=== PATIENT | female | born 1985 | race Caucasian/White ===

== ENCOUNTER 2018-12-14 14:05 | Observation (INO) ==
[2018-12-14] MEDS ORDERED: *HR* FentaNYL (PF) 100 MCG/2 ML VIAL IVP ONE ×2 (14:13→19:00)
[2018-12-14] MEDS ORDERED: Isovue-370 500 ML BOTTLE IVP ONE (14:13)
[2018-12-14] MEDS ORDERED: 0.9 % Sodium Chloride 1,000 ML IVC ONE (14:13)
[2018-12-14] MEDS ORDERED: Ondansetron 4 MG/2 ML VIAL IVP ONE ×2 (14:13→19:15)
[2018-12-14 14:39] LABS: Bilirubin,Urine Negative (Negative); Blood,Urine Trace (Negative); Clarity,Urine Cloudy (Clear); Color,Urine Yellow (Yellow); Glucose,Urine (UA) Normal (Normal); Ketones,Urine Negative (Negative); Leukocyte Esterase,Urine Small (Negative); Nitrite,Urine Positive (Negative); Protein,Urine Negative (Neg-Trace); Specific Gravity,Urine 1.017 (1.010-1.025); Urobilinogen,Urine Normal (Normal)
[2018-12-14 14:40] LABS: Bacteria,Urine Many per hpf (None-Few); Hyaline Casts,Urine None Seen per lpf (None-Few); Squamous Epithelial Cell,Urine Many per lpf (None-Few)
[2018-12-14 15:20] LABS: Basophils % 0.5 %; Eosinophils # 0.2 K/mcL (0.0-0.6); Eosinophils % 1.8 %; Hematocrit 42.9 % (35.3-44.9); Hemoglobin 14.1 g/dL (11.5-15.4); Immature Granulocytes % 0.5 % (0-4); Lymphocytes # 2.1 K/mcL (0.6-4.6); Lymphocytes % 25.3 %; Mean Corpuscular HGB Conc 32.9 g/dL (31.6-35.5); Mean Corpuscular Hemoglobin 29.1 pg (28.0-33.3); Mean Corpuscular Volume 88.5 fL (83.0-100.0); Mean Platelet Volume 10.2 fL (9.4-12.4); Monocytes # 0.6 K/mcL (0.0-1.3); Monocytes % 7.7 %; Neutrophils # 5.4 K/mcL (1.6-8.9); Platelet Count 217 K/mcL (140-400); Red Blood Count 4.85 M/mcL (3.82-4.97); Red Cell Distribution Width 14.5 % (11.5-14.5); Segmented Neutrophils % 64.2 %
[2018-12-14 15:39] LABS: Alanine Aminotransferase 7 Units/L (7-52); Albumin 4.7 g/dL (3.5-5.7); Albumin/Globulin Ratio 1.5 (1.1-2.2); Alkaline Phosphatase 54 Units/L (34-104); Aspartate Amino Transferase 14 Units/L (13-39); BUN/Creatinine Ratio 24 (6-26); Bilirubin,Direct 0.1 mg/dL (0.0-0.2); Bilirubin,Indirect 0.5 mg/dL (0.0-1.2); Bilirubin,Total 0.6 mg/dL (0.3-1.0); Blood Urea Nitrogen 15 mg/dL (6-20); Calcium 9.7 mg/dL (8.6-10.3); Carbon Dioxide 24 mEq/L (23-29); Chloride 103 mEq/L (98-107); Globulin 3.1 g/dL (2.4-3.5); Glucose 89 mg/dL (70-105); Lipase 44 Units/L (11-82); Osmolality,Calculated 282 (280-300); Potassium 3.9 mEq/L (3.5-5.1); Sodium 136 mEq/L (136-145); Total Protein 7.8 g/dL (6.4-8.9); eGFR For Non-African Americans > 60 (> 60)
[2018-12-14] MEDS ORDERED: Ketorolac 15 MG/ML VIAL IVP ONE (16:28)
[2018-12-14] MEDS ORDERED: cefTRIAXone 1,000 MG in Water for inj. (sterile) 20 ML 10 ML IVP ONE (16:28)
[2018-12-14] MEDS ORDERED: *HR* Morphine 2 MG/ML SYRINGE IVP ONE (16:28)
--- NOTE | 2018-12-14 16:29 | Emergency Department Note ---
Disposition Clinical Impression: Ovarian torsion Disposition: Transfer Short-Term Hosp Condition: Good Referrals: NONE,PCP [Primary Care Provider] - Forms: ED Satisfaction Letter, Work/School Release Time of Disposition: 19:08 Abdominal Pain HPI - General Chief Complaint: ED Abdominal Pain Stated Complaint: abd pain Time Seen by Provider: 12/14/18 14:12 Source: patient, EMS Mode of arrival: EMS Nursing Notes Reviewed: Yes Vital Signs Reviewed: Yes - History of Present Illness HPI Narrative: 33-year-old female otherwise healthy presents to the emergency department with right side abdominal pain. States her symptoms have been ongoing for the past several hours starting last night. The maximal intensity approximately one hour prior to arrival. She is had constant nausea with vomiting. She is been taken ibuprofen without significant relief. She does believe this feels similar to her prior ovarian torsion several years ago. This was performed at [facility]. She denies any urinary symptoms. Denies any vaginal discharge or bleeding. Menstrual period was 1 week ago. She has a history of cholecystectomy. Pt Subjective Complaint: abdominal pain Pain Scale: 10 - Related Data Allergies Allergy/AdvReac Type Severity Reaction Status Date / Time No Known Allergies Allergy Verified 12/14/18 13:44 All systems ED: reviewed and negative except as stated. Review of Systems: As Per HPI Constitutional: Denies: fever, chills ENT ED: Denies: congestion Cardiovascular: Denies: chest pain Respiratory: Denies: dyspnea Gastrointestinal: Reports: abdominal pain, nausea, vomiting. 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 Absent: scleral icterus - ENT ENT exam: normal exam, normal oropharynx, mucous membranes moist - Neck Neck exam: Present: normal inspection, full ROM, trachea midline - Chest Chest inspection: Present: normal inspection, symmetric chest wall rise - Respiratory Respiratory exam: Present: normal lung sounds bilaterally - Cardiovascular Cardiovascular exam: Present: regular rate, normal rhythm, normal heart sounds - Abdominal Exam Abdominal exam: Present: soft, tenderness, guarding, normal bowel sounds, tenderness at McBurney's Point. Absent: Non-Tender, distention, rebound, rigidity, obturator sign, Rovsing's sign Abdominal tenderness: Present: RLQ - Extremities Exam Extremities exam: Present: normal inspection, full ROM, normal capillary refill. Absent: tenderness, pedal edema - Back Exam Back exam: Present: normal inspection, full ROM. Absent: tenderness - Neurological Exam Neurological exam: Present: alert, oriented X3 - Psychiatric Psychiatric exam: Present: normal affect, normal mood - Skin Skin exam: Present: warm, dry, intact, normal color. Absent: rash, cyanosis, diaphoresis Course Course Narrative: Patient presents with right lower quadrant abdominal pain on going for the past several hours but most severe last one hour. She reports this feels similar to her ovarian torsion in the past. On examination she does have some guarding in the right lower quadrant positive McBurney. Concern for possible appendicitis versus ovarian torsion. At this time will obtain labs including a CT scan and ultrasound. Will try to aggressively treat her pain and nausea with medications. - Reevaluation(s) Reevaluation #1: Urinalysis appears consistent with infection. Ceftriaxone was given. Her labs or otherwise unremarkable. No leukocytosis. CT scan shows pelvic vessel congestion. Normal appendix. Doppler ultrasound of the ovaries is pending at this time. She has received multiple medications for her pain however continues to be an discomfort. Time: 16:28 Reevaluation #2: Still awaiting call from [facility] for physician. The patient was seen in minimal discomfort. She was found outside smoking. Given her diagnosis of the intermittent torsion this is consistent with her pain cycle. We had a discussion with the patient offering admission here again and given the weight patient is agreeable to staying here at [facility] for further management. - Consultations Consultation #1: Spoke with building energy retrofit technician concerning for torsion and detorsion given intermittent episodes of flow and absent flow. Spoke with RADIOLOGIST, suspects intermittent torsion. Discussed with the patient on surgical intervention here at [facility]. Patient requests to be transferred to [facility] where she had her original surgery for right side ovarian torsion performed in 2010. We discussed this may delay intervention and she requests to be transferred. She has received multiple medications for pain how ever were unsuccessful in treating her pain. Patient will be transferred to [facility] at her request. Time: 19:02 Consultation #2: Spoke to [facility] transfer Center. Patient has a history of ovarian torsion performed their in 2010. Will contact a OB surgeon and call back. Time: 19:15 Consultation #3: Patient was accepted to the EMERGENCY DEPARTMENT by physician Dr. ANDINO. Patient is agreeable to transfer Time: 19:54 Vital Signs Temperature 98.7 F 12/14/18 14:13 Pulse Rate 89 12/14/18 14:13 Respiratory Rate 14 12/14/18 14:13 Blood Pressure 129/89 12/14/18 14:13 O2 Sat by Pulse Oximetry 100 12/14/18 14:13 Temperature 98.7 F 12/14/18 14:13 Pulse Rate 89 12/14/18 14:13 Respiratory Rate 14 12/14/18 14:13 Blood Pressure 129/89 12/14/18 14:13 O2 Sat by Pulse Oximetry 100 12/14/18 14:13 Oxygen Delivery Oxygen Delivery Room Air Abdominal Pain - MDM Narrative Medical decision making narrative: Patient was discussed with my attending physician who agrees with ED management and final disposition. They independently evaluated the patient. Please refer to their attestation to this encounter for additional information. This note was generated by [employer] voice recognition software and as a result grammatical or spelling errors may occur using this program. - Medical Records Medical records reviewed: Yes I reviewed the patient's medical records. - Lab Data Lab results reviewed: Yes I reviewed the patient's lab results. Result diagrams: 12/14/18 14:13 12/14/18 14:13 Lab Results 12/14/18 12/14/18 12/14/18 Range/Units 14:13 14:13 14:32 WBC 8.3 (4.3-11.1) K/mcL RBC 4.85 (3.82-4.97) M/mcL Hgb 14.1 (11.5-15.4) g/dL Hct 42.9 (35.3-44.9) % MCV 88.5 (83.0-100.0) fL MCH 29.1 (28.0-33.3) pg MCHC 32.9 (31.6-35.5) g/dL RDW 14.5 (11.5-14.5) % Plt Count 217 (140-400) K/mcL MPV 10.2 (9.4-12.4) fL Immature Gran % 0.5 (0-4) % Seg Neutrophils % 64.2 % Lymphocytes % 25.3 % Monocytes % 7.7 % Eosinophils % 1.8 % Basophils % 0.5 % Neutrophils # 5.4 (1.6-8.9) K/mcL Lymphocytes # 2.1 (0.6-4.6) K/mcL Monocytes # 0.6 (0.0-1.3) K/mcL Eosinophils # 0.2 (0.0-0.6) K/mcL Basophils # 0.0 (0.0-0.2) K/mcL Sodium 136 (136-145) mEq/L Potassium 3.9 (3.5-5.1) mEq/L Chloride 103 (98-107) mEq/L Carbon Dioxide 24 (23-29) mEq/L BUN 15 (6-20) mg/dL Creatinine 0.63 (0.60-1.20) mg/dL Est GFR ( Amer) > 60 (> 60) Est GFR (Non-Af Amer) > 60 (> 60) BUN/Creatinine Ratio 24 (6-26) Glucose 89 (70-105) mg/dL Calculated Osmolality 282 (280-300) Calcium 9.7 (8.6-10.3) mg/dL Total Bilirubin 0.6 (0.3-1.0) mg/dL Direct Bilirubin 0.1 (0.0-0.2) mg/dL Indirect Bilirubin 0.5 (0.0-1.2) mg/dL AST 14 (13-39) Units/L ALT 7 (7-52) Units/L Alkaline Phosphatase 54 (34-104) Units/L Serum Total Protein 7.8 (6.4-8.9) g/dL Albumin 4.7 (3.5-5.7) g/dL Globulin 3.1 (2.4-3.5) g/dL Albumin/Globulin Ratio 1.5 (1.1-2.2) Lipase 44 (11-82) Units/L Urine Color Yellow (Yellow) Urine Clarity Cloudy A (Clear) Urine pH 6.0 (5.0-8.0) pH Units Ur Specific [place] 1.017 (1.010-1.025) Urine Protein Negative (Neg-Trace) mg/dL Urine Glucose (UA) Normal (Normal) mg/dL Urine Ketones Negative (Negative) mg/dL Urine Blood Trace H (Negative) Urine Nitrite Positive A (Negative) Urine Bilirubin Negative (Negative) Urine Urobilinogen Normal (Normal) mg/dL Ur Leukocyte Esterase Small H (Negative) Urine Microscopic RBC 3-5 H (0-3) per hpf Urine Microscopic WBC 5-15 H (0-3) per hpf Ur Squamous Epith Cells Many H (None-Few) per lpf Urine Bacteria Many H (None-Few) per hpf Hyaline Casts None Seen (None-Few) per lpf Ur Culture Indicated? NO. A (NO) - Radiology Data Radiology results reviewed: Yes I reviewed the patient's radiology results. Abdomen/Pelvis CT 12/14/18 14:13 IMPRESSION: No acute process identified. Normal appendix. Prominent pelvic vessels are re-identified which can be seen in pelvic congestion syndrome if symptomatic. D/ / 12/14/2018 16:53:15 Burke Garcia MD / [facility] Interpreting Provider: Burke Garcia MD Abdomen/Pelvis/Transvag US 12/14/18 14:14 IMPRESSION: The medical imaging technologist describes apparent episodes of absent flow to the right ovary concerning for torsion. Probable intermittent right ovarian torsion is occurring. Uterus and adnexal structures appear unremarkable. Critical results were called by Dr. Lyle Burk to Vasquez Voss on 12/14/2018 at 18:59. D/ / Lyle Burk / Lyle Burk Interpreting Provider: Lyle Burk Critical Care Time Critical Care Time: Yes Total Critical Care Time: 35 Attestation: Critical care time 35 minutes managing ovarian torsion. Attestation Statement - Attestation Attestation: Patient was seen with resident physician. I reviewed the history, physical, assessment and plan, and agree with the findings. I also personally evaluated this patient and had [id number] time with this patient. 33-year-old female presents to Department chief complaint of right lower quadrant abdominal pain. Patient states pain started a couple days ago but got really bad tonight. She denies dysuria. She denies being . She says she has had a history of ovarian torsion. She said the pain feels similar to that. She also said that her ovary was left intact after surgical for seizure to repair the twisted ovary. Patient's not had any diarrhea. She has had some nausea. She denies fevers or chills. Review of systems as above remainder negative. Physical exam vital signs are stable. ENT is unremarkable. Heart regular rhythm and rate. Lungs clear. Abdomen is guarding throughout. She is tender in the right lower quadrant. Patient appears uncomfortable secondary to the pain. Extremities unremarkable. Neurologically intact. Skin no rashes. Psych normal. ED course. We will have to rule out both appendicitis as well as torsion. Will call for an ultrasound as well as a CT scan. Labs did demonstrate a UTI, but otherwise were unremarkable. Hemodynamically the patient was stable throughout her stay. CT scan revealed no acute abnormalities. Ultrasound however was eventually obtained and that did reveal what appear to be a right-sided intermittent ovarian torsion. Patient was offered admission here but preferred to go to [facility] secondary to the fact that she had been treated there for the same thing previously. We agreed to arrange for transfer. Patient had significant improvement in pain. She actually one point went out and smoked. Because the diagnosis is more intermittent we did not push the issue of staying here. We did get a accepting physician at [facility], however prior to transfer patient decided she wanted to stay here. OB was notified. Dr. Villarreal agreed to come evaluate the patient. With the plan to admit her to [facility]. Critical care time 35 minutes. I agree with resident physician assessment and plan.
--- NOTE | 2018-12-14 20:59 | OB/GYN History & Physical ---
Date of Encounter: 12/14/18 Time of Encounter: 20:56 Assessment and Plan (1) Ovarian torsion Current visit: Yes Status: Acute Pt with severe rlq pain and n/v. CT was neg for appy and suggestive of torsion, u/s confirmed this. Pt with h/o prior torsion with l/s 9 years ago. D/w pt tx options and will proceed with l/s right oophrectomy. Pt is aware of operative risks and consent is obtained. History of Present Illness Chief complaint: severe right lower quadrant pain, h/o ovarian torsion, n/v HPI: Ms. Guidry is a 33 year old female G0 female presents with 24 hour worsening RLQ pelvic pain, just like when she had prior ovarian torsion. She states can't get comfortable unless bends leg upwards. Has persistent n/v. No fever or chills. No bowel or bladder c/o. Of note pt has h/o ovarian preserving surgery in 2009 at [facility] for ovarian torsion. CT showed congestion of pelvic vasculature. U/s showed intermittent blood flow in right ovarian vessels. Past Med Surg Social Fam HX - Past Medical History Source: patient Medical history: migraine Additional medical history: ovarian cysts, ovarian torsion Psychiatric history: no psych history - Past Surgical History Surgical History: cholecystectomy, other (l/s for right ovarian torsion) Additional surgical history: ovarian torsion surgery - Social History Smoking Status: Current every day smoker Smokeless Tobacco Status: No Alcohol use: none Drug use: none - Family History Mother Living Status: Still Living Obstetrical History - Pregnancies : 0 Medications and Allergies Allergy/AdvReac Type Severity Reaction Status Date / Time No Known Allergies Allergy Verified 12/14/18 13:44 Exam - Vital Signs Vital signs: Initial Vital Signs Temp Pulse Resp BP Pulse Ox 98.7 F 89 14 129/89 100 12/14/18 14:13 12/14/18 14:13 12/14/18 14:13 12/14/18 14:13 12/14/18 14:13 - Constitutional Constitutional: well nourished, moderate distress - HEENT HEENT: EOMI, PERRL - Neck Neck exam: full ROM - Lungs Respiratory exam: CTAB - Cardiovascular Cardiovascular exam: RRR - Abdomen Abdomen detail: right lower quadrant: tenderness (No generalized guarding) - Extremities Extremities exam: full ROM - Adnexa Adnexa: right: tenderness Results Result Diagrams: 12/14/18 14:13 12/14/18 14:13 Abnormal lab results Urine Clarity Cloudy (Clear) A 12/14/18 14:32 Urine Blood Trace (Negative) H 12/14/18 14:32 Urine Nitrite Positive (Negative) A 12/14/18 14:32 Ur Leukocyte Esterase Small (Negative) H 12/14/18 14:32 Urine Microscopic RBC 3-5 per hpf (0-3) H 12/14/18 14:32 Urine Microscopic WBC 5-15 per hpf (0-3) H 12/14/18 14:32 Ur Squamous Epith Cells Many per lpf (None-Few) H 12/14/18 14:32 Urine Bacteria Many per hpf (None-Few) H 12/14/18 14:32 Ur Culture Indicated? NO. (NO) A 12/14/18 14:32 All other labs normal.
[2018-12-14] MEDS ORDERED: Ringers Solution, Lactated 1,000 ML IVC SCH (21:00)
[2018-12-14] MEDS ORDERED: Albuterol 2.5 MG/3 ML NEBULIZER IH ONE (21:20)
[2018-12-14] MEDS ORDERED: *HR* Rocuronium Bromide 50 MG/5 ML VIAL ONE (21:24)
[2018-12-14] MEDS ORDERED: Dexamethasone 4 MG/ML VIAL ONE (21:24)
[2018-12-14] MEDS ORDERED: *HR* Midazolam HCl 2 MG/2 ML VIAL ONE (21:24)
[2018-12-14] MEDS ORDERED: *HR* FentaNYL (PF) 100 MCG/2 ML VIAL ONE ×2 (21:24→22:50)
[2018-12-14] MEDS ORDERED: Lidocaine -MPF 2% 2 ML VIAL ONE (21:24)
[2018-12-14] MEDS ORDERED: Ondansetron 4 MG/2 ML VIAL ONE (21:24)
[2018-12-14] MEDS ORDERED: *HR* Propofol 200 MG/20 ML VIAL IVP ONE (21:24)
[2018-12-14] MEDS ORDERED: Lidocaine -MPF 4% 5 ML AMPUL ONE (21:28)
[2018-12-14] MEDS ORDERED: Acetaminophen IV 1,000 MG/100 ML INFUS..BTL ONE (21:32)
[2018-12-14] MEDS ORDERED: Famotidine 20 MG/2 ML VIAL ONE (21:32)
--- NOTE | 2018-12-14 21:37 | Anesthesia Evaluation PreOp ---
Date of Encounter: 12/14/18 Time of Encounter: 21:40 - Past History Planned Operation: Laparoscopic Rt OOphorectomy Cardiac History: Denies any Significant Hx Pulmonary History: Smoker IMCU NURSE History: Other (Migraines) Other Medical History: Denies Any Significant HX Anesthesia History: No Prior Anesthetic Complications : No Test: Negative Alcohol Use: none Drug use: none Medications and Allergies Allergy/AdvReac Type Severity Reaction Status Date / Time No Known Allergies Allergy Verified 12/14/18 13:44 - Meds/Allergy Pre-op Review Medications Reviewed: Yes Allergies Reviewed: Yes Beta Blockers on Current Med List: No Anesthesia Results - Labs 12/14/18 14:13 12/14/18 14:13 Anesthesia Exam O2 Sat Height 1.7 m Weight 54.431 kg O2 Sat by Pulse Oximetry 100 Vital Signs Temp Pulse Resp BP Pulse Ox 98.7 F 89 14 129/89 100 12/14/18 14:13 12/14/18 14:13 12/14/18 14:13 12/14/18 14:13 12/14/18 14:13 Height: 5'7 Weight: 120 lbs NPO (# of Hours): MN Pain Scale: 0 - HEENT Pupil (Motor): Pupils equal, EOMI Mallampati: II Oral Opening: Greater than 3 - IMCU NURSE LOC: Oriented IMCU NURSE Motor: Normal RUE, Normal LUE, Normal RLE, Normal LLE, Normal Face IMCU NURSE Sensory: Normal: RUE, LUE, RLE, LLE, Face - Cardiac Rhythm: Regular Murmur: None JVD: No Carotid Bruit: No - Pulmonary Breath Sounds: bilateral Clear Respiratory Effort: Symmetrical Anesthesia Assess/Plan ASA Score: 2, E Level of consciousness: Cooperative, Oriented Anesthetic Plan: General Autologous Blood: No Monitoring Plan: Standard Monitors Recovery Plan: PACU (Discussed GA, agrees to proceed)
[2018-12-14] MEDS ORDERED: *HR* Promethazine 25 MG/ML VIAL IVP PRN (21:39)
[2018-12-14] MEDS ORDERED: *HR* OxyCODONE Immed Rel 5 MG TABLET PO PRN (21:39)
[2018-12-14] MEDS ORDERED: Dexamethasone 4 MG/ML VIAL IVP ONE (21:39)
[2018-12-14] MEDS ORDERED: Bupivacaine/EPI 1:200k 0.5%PF 10 ML VIAL ONE (21:48)
--- NOTE | 2018-12-14 22:41 | Discharge Summary ---
Outpatient Proc Discharge Plan - Plan Additional Instructions: F/U in my office in 2 weeks. Call for fever, abnormal drainage, redness or other signs or symptoms of infection. Don't lift more than a gallon of milk for 2 days. Prescriptions: Ibuprofen [Motrin] 600 mg PO Q6HR PRN #30 tab PRN Reason: post op pain Oxycodone HCl/Acetaminophen [Percocet 5-325 mg Tablet] 1 each PO Q6H PRN 7 Days #20 tablet PRN Reason: post op pain Home Medications: Ibuprofen [Motrin] 600 mg PO Q6HR PRN #30 tab 12/14/18 [Rx] Oxycodone HCl/Acetaminophen [Percocet 5-325 mg Tablet] 1 each PO Q6H PRN 7 Days #20 tablet 12/14/18 [Rx]
[2018-12-14] MEDS ORDERED: EPHEDrine 50 MG/ML VIAL ONE (22:49)
[2018-12-14] MEDS ORDERED: Neostigmine Methylsulfate 3 MG/3 ML SYRINGE ONE (23:15)
[2018-12-14] MEDS ORDERED: Ketorolac 30 MG/ML VIAL ONE (23:38)
--- NOTE | 2018-12-14 23:43 | OB/GYN Procedure Note ---
Laparoscopy Procedure - Diagnosis Date of procedure: 12/14/18 Pre-op diagnosis: acute pelvic pain, other (Right ovarian torsion) Post-op diagnosis: same - Procedure Laparoscopy procedure: operative laparoscopy, right oophorectomy Surgeon: Aniceto Thacker Was there an curriculum assistant principal present: No Anesthesia Type: General Estimated blood loss (cc): 5 Complications: none Specimens: right ovary Findings: probable right ovarian torsion, normal appendix, normal left tube and normal uterus. Disposition: PACU Narrative: Patient's 33-year-old female presented emergency room with severe right lower quadrant pain and nausea and vomiting. Ultrasound showed probable right ovarian torsion and CAT scan showed inflammation and right pelvic vessels. Patient had history of prior right ovarian torsion. I discussed with patient options patient consented for right oophrectomy. She was aware operative risks and signed appropriate consent. Description procedure: Patient was taken operating room where general anesthesia was administered. She is prepped draped in usual sterile fashion. Bladder was drained of clear urine. Scalp was used to make 5 mm incision below the umbilicus from a blunt trocar was introduced at difficulty. He direct visualization 12 mm trochars placed midline just above symphysis pubis. Another 5 mm trochars placed in the right lower quadrant. Right ovary was pulled towards the midline ligatures taken crossed infundibulopelvic ligament on the right side this was cauterized and transected. Patient was then taken across the mesosalpinx and utero-ovarian ligament cauterized and transected as I went. Right ovary was freed up placed in Endo Catch bag and removed without difficulty through the 12 mm trocar site. Uterus was normal as were the fallopian tubes and left ovary. Appendix was normal. There is no scar tissue no obvious endometriosis. This point pneumoperitoneum was released trochars removed the 12 mm trocar site closed first closing the fascia with 0 Vicryl and the skin edges with 4-0 Vicryl rest skin edges were closed 4-0 Vicryl and skin glue. Then the procedure all sponge and instruments counts are correct [place] loss 5 mL patient was taken recovery in good condition
--- NOTE | 2018-12-14 23:58 | Anesthesia Evaluation Post Op ---
Date of Encounter: 12/14/18 Time of Encounter: 23:55 - Vital Signs Vital Signs: Vital Signs/O2 Sat/Glucose, Most Current Temp Pulse Resp BP Pulse Ox 12/14/18 23:53 97.7 F 57 16 136/83 99 12/14/18 23:43 97.7 F 63 16 133/76 99 12/14/18 23:33 97.4 F L 62 14 122/76 99 12/14/18 21:09 14 103/60 - Lungs Lungs: Clear Ascult./Percussion - Airway Airway: Non-obstructed - Cardiovascular Regular Rate - Mental Status Mental Status: Alert & Oriented, Answers Appropriately - Pain Pain Scale: 1 - Nausea Vomiting Nausea Vomiting: Not Present - Hydration Hydration: Ice chips - Discharge PostOp Status: Transfer Patient to floor
[2018-12-15] MEDS ORDERED: *HR* OxyCODONE/APAP 5/325 TABLET PO ONE (00:06)
[2018-12-15 01:36] VITALS: BP 111/75
== END 2018-12-15 01:40 | disposition home or self-care (01) ==
LOC: EMEROOARM 14:05 → 1NENUOBS 14:05
PROVIDERS: ADMIT Obstetrics & Gynecology; ATTEND Obstetrics & Gynecology

== ENCOUNTER 2019-04-17 23:14 | Observation (INO) ==
[2019-04-17] MEDS ORDERED: Ondansetron 4 MG/2 ML VIAL IVP ONE (23:48)
[2019-04-17] MEDS ORDERED: 0.9 % Sodium Chloride 1,000 ML IVC ONE (23:48)
[2019-04-17] MEDS ORDERED: Morphine Sulfate 2 MG/ML SYRINGE IVP ONE (23:48)
[2019-04-18 00:27] LABS: Basophils # 0.1 K/mcL (0.0-0.2); Basophils % 0.4 %; Eosinophils # 0.5 K/mcL (0.0-0.6); Eosinophils % 3.8 %; Hematocrit 39.5 % (35.3-44.9); Hemoglobin 12.9 g/dL (11.5-15.4); Immature Granulocytes % 0.5 % (0-4); Lymphocytes # 3.2 K/mcL (0.6-4.6); Lymphocytes % 26.5 %; Mean Corpuscular HGB Conc 32.7 g/dL (31.6-35.5); Mean Corpuscular Hemoglobin 28.4 pg (28.0-33.3); Mean Corpuscular Volume 86.8 fL (83.0-100.0); Mean Platelet Volume 10.4 fL (9.4-12.4); Monocytes # 0.9 K/mcL (0.0-1.3); Monocytes % 7.6 %; Neutrophils # 7.3 K/mcL (1.6-8.9); Platelet Count 197 K/mcL (140-400); Red Blood Count 4.55 M/mcL (3.82-4.97); Red Cell Distribution Width 14.9 % (11.5-14.5); Segmented Neutrophils % 61.2 %; White Blood Count 11.9 K/mcL (4.3-11.1)
[2019-04-18 00:39] LABS: BUN/Creatinine Ratio 12 (6-26); Blood Urea Nitrogen 8 mg/dL (6-20); Calcium 9.2 mg/dL (8.6-10.3); Carbon Dioxide 23 mEq/L (23-29); Chloride 108 mEq/L (98-107); Glucose 99 mg/dL (70-105); Osmolality,Calculated 282 (280-300); Potassium 3.9 mEq/L (3.5-5.1); Sodium 137 mEq/L (136-145); eGFR For African Americans > 60 (> 60); eGFR For Non-African Americans > 60 (> 60)
[2019-04-18 00:51] LABS: Bilirubin,Urine Negative (Negative); Blood,Urine Negative (Negative); Clarity,Urine Cloudy (Clear); Color,Urine Yellow (Yellow); Glucose,Urine (UA) Normal (Normal); Ketones,Urine Negative (Negative); Leukocyte Esterase,Urine Small (Negative); Nitrite,Urine Positive (Negative); PH,Urine 6.5 pH Units (5.0-8.0); Protein,Urine Negative (Neg-Trace); Specific Gravity,Urine 1.021 (1.010-1.025); Urobilinogen,Urine Normal (Normal)
[2019-04-18 00:53] LABS: Bacteria,Urine Many per hpf (None-Few); Hyaline Casts,Urine None Seen per lpf (None-Few); Squamous Epithelial Cell,Urine Many per lpf (None-Few)
[2019-04-18] MEDS ORDERED: *HR* HYDROmorphone (PF) 1 MG/ML SYRINGE IVP ONE ×3 (02:12→07:10)
[2019-04-18] MEDS ORDERED: Ondansetron 4 MG/2 ML VIAL IVP PRN (06:07)
[2019-04-18] MEDS ORDERED: cefTRIAXone 2,000 MG in 0.9 % Sodium Chloride Mini Bag 100 ML IVPB ONE (06:08)
[2019-04-18] MEDS: Ringers Solution, Lactated 1,000 ML IVC SCH ×2 (06:24→14:57)
[2019-04-18] MEDS ORDERED: *HR* HYDROmorphone (PF) 1 MG/ML SYRINGE IVP PRN (11:53)
[2019-04-18] MEDS ORDERED: Ketorolac 15 MG/ML VIAL IVP PRN (11:55)
[2019-04-19] MEDS ORDERED: cefTRIAXone 1,000 MG in Water for inj. (sterile) 10 ML IVP SCH (06:00)
[2019-04-19 06:47] VITALS: BP 99/65
== END 2019-04-19 10:15 | disposition home or self-care (01) ==
LOC: EMEROOARM 23:14 → 1NENUOBS 23:14
PROVIDERS: ADMIT Obstetrics & Gynecology; ATTEND Obstetrics & Gynecology

== ENCOUNTER 2019-06-03 13:41 | Observation (INO) ==
[2019-06-03] MEDS ORDERED: 0.9 % Sodium Chloride 1,000 ML IVC STA (14:05)
[2019-06-03] MEDS ORDERED: Ondansetron 4 MG/2 ML VIAL IVP STA (14:05)
[2019-06-03] MEDS ORDERED: cefTRIAXone 1,000 MG in Water for inj. (sterile) 10 ML IVP ONE (14:05)
[2019-06-03] MEDS ORDERED: Ketorolac 15 MG/ML VIAL IVP ONE (14:06)
[2019-06-03 15:26] LABS: Basophils % 0.6 %; Eosinophils # 0.3 K/mcL (0.0-0.6); Eosinophils % 4.1 %; Hematocrit 40.4 % (35.3-44.9); Immature Granulocytes % 0.3 % (0-4); Lymphocytes # 1.8 K/mcL (0.6-4.6); Lymphocytes % 28.6 %; Mean Corpuscular HGB Conc 32.2 g/dL (31.6-35.5); Mean Corpuscular Hemoglobin 28.5 pg (28.0-33.3); Mean Corpuscular Volume 88.6 fL (83.0-100.0); Mean Platelet Volume 9.9 fL (9.4-12.4); Monocytes # 0.6 K/mcL (0.0-1.3); Monocytes % 9.3 %; Neutrophils # 3.6 K/mcL (1.6-8.9); Platelet Count 153 K/mcL (140-400); Red Blood Count 4.56 M/mcL (3.82-4.97); Red Cell Distribution Width 15.5 % (11.5-14.5); Segmented Neutrophils % 57.1 %; White Blood Count 6.3 K/mcL (4.3-11.1)
[2019-06-03] MEDS ORDERED: Isovue-370 500 ML BOTTLE IVP ONE (15:26)
[2019-06-03] MEDS ORDERED: *HR* FentaNYL (PF) 100 MCG/2 ML VIAL IVP ONE (15:42)
[2019-06-03 15:46] LABS: BUN/Creatinine Ratio 13 (6-26); Blood Urea Nitrogen 8 mg/dL (6-20); Calcium 8.6 mg/dL (8.6-10.3); Carbon Dioxide 22 mEq/L (23-29); Chloride 110 mEq/L (98-107); Glucose 77 mg/dL (70-105); Osmolality,Calculated 283 (280-300); Potassium 3.9 mEq/L (3.5-5.1); Sodium 138 mEq/L (136-145); eGFR For African Americans > 60 (> 60); eGFR For Non-African Americans > 60 (> 60)
[2019-06-03] MEDS ORDERED: *HR* HYDROcodone/Acet 5/325 mg TABLET PO PRN (17:35)
[2019-06-03] MEDS ORDERED: Acetaminophen 325 MG TABLET PO PRN (17:35)
[2019-06-03] MEDS ORDERED: Ondansetron 4 MG/2 ML VIAL IVP PRN (17:35)
[2019-06-03] MEDS ORDERED: *HR* OxyCODONE Immed Rel 5 MG TABLET PO PRN (17:35)
[2019-06-03] MEDS ORDERED: Naloxone 0.4 MG/ML INJ IVP PRN (17:35)
[2019-06-03] MEDS ORDERED: MOM Conc 10 ML UD.LIQ PO PRN (17:35)
[2019-06-03] MEDS: Fluticasone Propionate Nasal 50 MCG/SPRAY BOTTLE NS SCH (21:16)
[2019-06-04 06:05] LABS: Hematocrit 34.3 % (35.3-44.9); Mean Corpuscular HGB Conc 32.7 g/dL (31.6-35.5); Mean Corpuscular Hemoglobin 28.7 pg (28.0-33.3); Mean Corpuscular Volume 87.9 fL (83.0-100.0); Mean Platelet Volume 10.2 fL (9.4-12.4); Platelet Count 148 K/mcL (140-400); Red Cell Distribution Width 15.5 % (11.5-14.5); White Blood Count 5.1 K/mcL (4.3-11.1)
[2019-06-04 06:09] LABS: BUN/Creatinine Ratio 20 (6-26); Blood Urea Nitrogen 11 mg/dL (6-20); Calcium 8.5 mg/dL (8.6-10.3); Carbon Dioxide 23 mEq/L (23-29); Chloride 110 mEq/L (98-107); Glucose 99 mg/dL (70-105); Magnesium 1.8 mg/dL (1.6-2.6); Osmolality,Calculated 293 (280-300); Potassium 3.9 mEq/L (3.5-5.1); Sodium 142 mEq/L (136-145); eGFR For African Americans > 60 (> 60); eGFR For Non-African Americans > 60 (> 60)
[2019-06-04 07:05] LABS: Hemoglobin 11.2 g/dL (11.5-15.4)
[2019-06-04] MEDS: cefTRIAXone 1,000 MG in Water for inj. (sterile) 10 ML IVP SCH ×2 (08:25→10:30)
[2019-06-04] MEDS: Fluticasone Propionate Nasal 50 MCG/SPRAY BOTTLE NS SCH (08:33)
[2019-06-04] MEDS ORDERED: NON-FORMULARY MEDICATION 1 EACH EACH (Guaifenesin/Dm/Pseudoephedrine [Capmist Dm Tablet] 1 PO SCH (09:00)
[2019-06-04 10:58] VITALS: BP 105/67
[2019-06-04] MEDS ORDERED: Sulfamethoxazole/Trimeth DS 1 EACH TABLET PO ONE (11:12)
== END 2019-06-04 12:01 | disposition home or self-care (01) ==
LOC: EMEROOARM 13:41 → 3ANU 13:41
PROVIDERS: ADMIT Internal Medicine; ATTEND Internal Medicine

== ENCOUNTER 2022-05-04 12:14 | Observation (INO) ==
[2022-05-04] MEDS ORDERED: Ondansetron 4 MG/2 ML VIAL IVP ONE (14:48)
[2022-05-04] MEDS ORDERED: 0.9 % Sodium Chloride 1,000 ML IVC ONE ×2 (14:48→17:29)
[2022-05-04 15:04] LABS: Basophils # 0.1 K/mcL (0.0-0.2); Basophils % 0.3 %; Eosinophils # 0.2 K/mcL (0.0-0.6); Eosinophils % 0.8 %; Hemoglobin 15.1 g/dL (11.5-15.4); Immature Granulocytes % 0.7 % (0-4); Lymphocytes # 0.8 K/mcL (0.6-4.6); Lymphocytes % 3.3 %; Mean Corpuscular HGB Conc 33.6 g/dL (31.6-35.5); Mean Corpuscular Hemoglobin 28.5 pg (28.0-33.3); Mean Corpuscular Volume 85.1 fL (83.0-100.0); Mean Platelet Volume 9.3 fL (9.4-12.4); Monocytes % 4.2 %; Neutrophils # 21.3 K/mcL (1.6-8.9); Platelet Count 253 K/mcL (140-400); Red Blood Count 5.29 M/mcL (3.82-4.97); Red Cell Distribution Width 13.8 % (11.5-14.5); Segmented Neutrophils % 90.7 %; White Blood Count 23.5 K/mcL (4.3-11.1)
[2022-05-04 15:07] LABS: Bacteria,Urine Few per hpf (None-Few); Bilirubin,Urine Negative (Negative); Blood,Urine Moderate (Negative); Clarity,Urine Turbid (Clear); Color,Urine Yellow (Yellow); Glucose,Urine (UA) Normal (Normal); Hyaline Casts,Urine Few per lpf (None Seen); Ketones,Urine Trace mg/dL (Negative); Leukocyte Esterase,Urine Moderate (Negative); Mucus,Urine Many per lpf (None-Few); Nitrite,Urine Negative (Negative); PH,Urine 5.5 pH Units (5.0-8.0); Protein,Urine 70 mg/dL (Neg-Trace); Squamous Epithelial Cell,Urine Moderate per hpf (None-Few); Urobilinogen,Urine Normal (Normal); WBC,Urine 30-50 per hpf (0-3)
[2022-05-04 15:13] LABS: Alanine Aminotransferase 8 Units/L (7-52); Albumin 4.5 g/dL (3.5-5.7); Albumin/Globulin Ratio 1.3 (1.1-2.2); Alkaline Phosphatase 64 Units/L (34-104); Amylase 54 Units/L (29-103); Aspartate Amino Transferase 15 Units/L (13-39); BUN/Creatinine Ratio 25 (6-26); Bilirubin,Direct 0.1 mg/dL (0.0-0.2); Bilirubin,Indirect 0.5 mg/dL (0.0-1.0); Bilirubin,Total 0.6 mg/dL (0.3-1.0); Blood Urea Nitrogen 15 mg/dL (6-20); Calcium 9.7 mg/dL (8.6-10.3); Carbon Dioxide 23 mEq/L (23-29); Chloride 105 mEq/L (98-107); Globulin 3.4 g/dL (2.4-3.5); Glucose 121 mg/dL (70-105); Lipase 28 Units/L (11-82); Osmolality,Calculated 282 (280-300); Potassium 4.1 mEq/L (3.5-5.1); Sodium 135 mEq/L (136-145); Total Protein 7.9 g/dL (6.4-8.9)
[2022-05-04 16:04] LABS: Platelet Estimate Normal (Normal)
[2022-05-04] MEDS ORDERED: Nicotine 21 MG PATCH.TD24 TD STA (17:29)
[2022-05-04] MEDS ORDERED: Ampicillin/Sulbactam 3,000 MG in 0.9 % Sodium Chloride Mini Bag 100 ML IVPB ONE (17:45)
[2022-05-04] MEDS ORDERED: Ondansetron 4 MG/2 ML VIAL IVP PRN (19:11)
[2022-05-04] MEDS ORDERED: Naloxone 0.4 MG/ML INJ IVP PRN (19:11)
[2022-05-04] MEDS ORDERED: Acetaminophen 325 MG TABLET PO PRN (19:11)
[2022-05-04] MEDS ORDERED: 0.9 % Sodium Chloride 1,000 ML IVC SCH (19:15)
[2022-05-04 19:45] LABS: Amphetamine Screen,Urine Negative ng/mL (Cutoff=1000); Barbiturate Screen,Urine Negative ng/mL (Cutoff=200); Benzodiazepines Screen,Urine Negative ng/mL (Cutoff=200); Cannabinoid Screen,Urine Negative ng/mL (Cutoff = 50); Cocaine Screen,Urine Negative ng/mL (Cutoff= 300); Opiate Screen,Urine Negative ng/mL (Cutoff=300); Phencyclidine Screen,Urine Positive ng/mL (Cutoff=25)
[2022-05-04] MEDS ORDERED: cefTRIAXone 1,000 MG in 0.9 % Sodium Chloride Mini Bag 100 ML IVPB SCH (20:00)
[2022-05-04 21:17] LABS: Chlamydia Trachomatis DNA Ur NOT DETECTED (Not Detect)
[2022-05-05 00:40] LABS: Amphetamine Screen,Urine Negative ng/mL (Cutoff=1000); Barbiturate Screen,Urine Negative ng/mL (Cutoff=200); Benzodiazepines Screen,Urine Negative ng/mL (Cutoff=200); Cannabinoid Screen,Urine Negative ng/mL (Cutoff = 50); Cocaine Screen,Urine Negative ng/mL (Cutoff= 300); Opiate Screen,Urine Negative ng/mL (Cutoff=300); Phencyclidine Screen,Urine Negative ng/mL (Cutoff=25)
[2022-05-05 01:11] LABS: Adenovirus Not Detected (Not Detect); Bordetella Pertussis Not Detected (Not Detect); Chlamydophila pneumoniae Not Detected (Not Detect); Coronavirus 229E Not Detected (Not Detect); Coronavirus HKU1 Not Detected (Not Detect); Coronavirus NL63 Not Detected (Not Detect); Coronavirus OC43 Not Detected (Not Detect); Human Metapneumovirus Not Detected (Not Detect); Human Rhinovirus/Enterovirus Not Detected (Not Detect); Influenza A Subtype 2009 H1 Not Detected (Not Detect); Influenza B Not Detected (Not Detect); Mycoplasma pneumoniae Not Detected (Not Detect); Parainfluenza Virus 1 Not Detected (Not Detect); Parainfluenza Virus 2 Not Detected (Not Detect); Parainfluenza Virus 3 Not Detected (Not Detect); Parainfluenza Virus 4 Not Detected (Not Detect); Respiratory Syncytial Virus Not Detected (Not Detect); SARS-CoV-2 Not Detected (Not Detect)
[2022-05-05 01:29] LABS: Hematocrit 36.1 % (35.3-44.9); Mean Corpuscular HGB Conc 33.5 g/dL (31.6-35.5); Mean Corpuscular Hemoglobin 28.5 pg (28.0-33.3); Mean Corpuscular Volume 84.9 fL (83.0-100.0); Mean Platelet Volume 9.7 fL (9.4-12.4); Platelet Count 200 K/mcL (140-400); Red Blood Count 4.25 M/mcL (3.82-4.97); White Blood Count 12.7 K/mcL (4.3-11.1)
[2022-05-05 01:31] LABS: Hemoglobin 12.1 g/dL (11.5-15.4)
[2022-05-05 01:33] LABS: BUN/Creatinine Ratio 20 (6-26); Blood Urea Nitrogen 11 mg/dL (6-20); Calcium 8.3 mg/dL (8.6-10.3); Carbon Dioxide 20 mEq/L (23-29); Chloride 110 mEq/L (98-107); Glucose 115 mg/dL (70-105); Osmolality,Calculated 284 (280-300); Potassium 3.4 mEq/L (3.5-5.1); Sodium 137 mEq/L (136-145)
[2022-05-05] MEDS ORDERED: 0.9 % Sodium Chloride 1,000 ML IV ONE (07:53)
[2022-05-05] MEDS: D5% in 0.45% NACL 1,000 ML IVC SCH ×2 (12:59→19:57)
[2022-05-05 15:15] LABS: Adenovirus F 40/41 PCR Not detected (Not detect); Astrovirus PCR Not detected (Not detect); C.difficile Toxin A/B Gene PCR Not detected (Not detect); Campylobacter by PCR Not detected (Not detect); Cryptosporidium by PCR Not detected (Not detect); Cyclospora cayetanensis PCR Not detected (Not detect); Entamoeba histolytica PCR Not detected (Not detect); Enteroaggregative E.coli(EAEC) Not detected (Not detect); Enteropathogenic E.coli(EPEC) DETECTED (Not detect); Enterotoxigenic E.coli (ETEC) Not detected (Not detect); Giardia lamblia PCR Not detected (Not detect); Norovirus GI/GII PCR Not detected (Not detect); Plesiomonas shigelloides PCR Not detected (Not detect); Rotavirus A PCR Not detected (Not detect); Salmonella PCR Not detected (Not detect); Sapovirus PCR Not detected (Not detect); Shig/EnteroinvasiveE coli EIEC Not detected (Not detect); Shigalike tox-prod E coli STEC Not detected (Not detect); Vibrio PCR Not detected (Not detect); Vibrio cholerae PCR Not detected (Not detect); Yersinia enterocolitica PCR Not detected (Not detect)
[2022-05-05] MEDS ORDERED: 0.9 % Sodium Chloride Mini Bag 100 ML ONE (19:43)
[2022-05-05] MEDS ORDERED: cefTRIAXone 1,000 MG in 0.9 % Sodium Chloride Mini Bag 100 ML IVPB SCH (20:00)
[2022-05-06 01:43] LABS: Basophils % 0.5 %; Eosinophils # 0.4 K/mcL (0.0-0.6); Eosinophils % 4.7 %; Hematocrit 33.9 % (35.3-44.9); Hemoglobin 11.2 g/dL (11.5-15.4); Immature Granulocytes % 0.3 % (0-4); Lymphocytes # 2.5 K/mcL (0.6-4.6); Lymphocytes % 32.7 %; Mean Corpuscular Hemoglobin 28.1 pg (28.0-33.3); Mean Corpuscular Volume 85.2 fL (83.0-100.0); Mean Platelet Volume 9.5 fL (9.4-12.4); Monocytes # 0.7 K/mcL (0.0-1.3); Monocytes % 8.6 %; Neutrophils # 4.1 K/mcL (1.6-8.9); Platelet Count 170 K/mcL (140-400); Red Blood Count 3.98 M/mcL (3.82-4.97); Segmented Neutrophils % 53.2 %; White Blood Count 7.7 K/mcL (4.3-11.1)
[2022-05-06 02:01] LABS: BUN/Creatinine Ratio 15 (6-26); Blood Urea Nitrogen 8 mg/dL (6-20); Calcium 8.2 mg/dL (8.6-10.3); Carbon Dioxide 22 mEq/L (23-29); Chloride 111 mEq/L (98-107); Glucose 121 mg/dL (70-105); Magnesium 1.7 mg/dL (1.6-2.6); Osmolality,Calculated 286 (280-300); Phosphorous 3.6 mg/dL (2.7-4.5); Potassium 3.5 mEq/L (3.5-5.1); Sodium 138 mEq/L (136-145)
[2022-05-06] MEDS: D5% in 0.45% NACL 1,000 ML IVC SCH (05:46)
[2022-05-06 08:58] VITALS: BP 117/76; PULSE 92; TEMP 98.4; O2SAT 99
== END 2022-05-06 14:07 | disposition home or self-care (01) ==
LOC: 3BNU 12:14 → EMEROOARM 12:14 → 3BNU 20:27
PROVIDERS: ADMIT Student in an Organized Health Care Education/Training Program; ATTEND Student in an Organized Health Care Education/Training Program